=== PATIENT | female | born 2000 | race Hispanic/Latino ===

== ENCOUNTER 2023-08-03 19:44 | Emergency (ER) | payer OTHER ==
[2023-08-03 20:40] LABS: Bilirubin Neg (Negative); Blood, Urine 10 (Negative); Clarity Clear (Clear); Glucose, Urine (Dipstick) Normal (Negative); Ketone, Urine 150 mg/dL (Negative); Leukocyte 500 (Negative); Nitrite Negative (Negative); Protein, Urine (Dipstick) 30 mg/dl (Neg-Trace); Specific Gravity, Urine 1.025 (1.005-1.030); Urobilinogen Normal mg/dL (Less than 2)
[2023-08-03 20:49] LABS: Bacteria/HPF 4+ HPF (None Seen); CAUTI Indications for Culture Pregnancy; Mucous/LPF 3+ LPF (<2+); RBC/HPF 0-3 HPF (0-3); WBC/HPF 21-50 HPF (0-3)
[2023-08-03 20:50] LABS: Urine Culture Reflex Yes Yes
[2023-08-03 21:03] LABS: #Eosinphils 0.1 10x3/uL (0.0-0.5); #Monocytes 0.6 10x3/uL (0.0-1.1); #Neutrophils 7.8 10x3/uL (1.5-8.4); %Basophils 0.4 % (0.0-2.0); %Eosinophils 0.8 % (0.0-6.0); %Lymphocytes 20.6 % (18.0-47.0); %Monocytes 5.7 % (0.0-10.0); %Neutrophils 71.9 % (40.0-75.0); Hematocrit 34.4 % (34.9-44.5); Mean Corpuscular Hemoglobin 23.5 pg (27.0-33.0); Mean Corpuscular Volume 73.5 fl (81.6-98.3); Mean Platelet Volume 10.3 fl (7.4-10.4); Platelet Count 335 10x3/uL (150-450); RBC Distribution Width 14.6 % (11.5-14.5); Red Blood Cell (RBC) Count 4.68 10x6/uL (3.90-5.03); White Blood Cell (WBC) Count 10.8 10x3/uL (3.5-10.5)
[2023-08-03 21:08] LABS: ALT (SGPT) 21 U/L (8-55); AST (SGOT) 16 U/L (5-34); Albumin 3.6 g/dL (3.5-5.0); Alkaline Phosphatase 60 U/L (40-110); Anion Gap 14 mmol/L (10-20); BUN (Urea Nitrogen) 6 mg/dL (7.0-18.7); Bilirubin, Total 0.3 mg/dL (0.2-1.2); Calc. Creatinine Clearance 0 mL/min (70-130); Calcium 8.4 mg/dL (7.8-10.44); Carbon Dioxide 17 mmol/L (22-29); Chloride 107 mmol/L (98-107); Estimated GFR 132; Globulin 3.4 g/dL (2.4-3.5); Glucose 76 mg/dL (70-105); Potassium 3.7 mmol/L (3.5-5.1); Sodium 134 mmol/L (136-145)
[2023-08-03 21:34] LABS: Anisocytosis MODERATE=16-30 cells (100X) (0-5/hpf); Hypochromia SLIGHT = 6-15 cells (100X) (0-5/hpf); Microcytosis MODERATE=15-30 cells (100X) (0-5/hpf); Ovalocytes SLIGHT = 2-5 cells (100X) (0-1/hpf); Poikilocytosis SLIGHT = 6-15 cells (100X) (0-5/hpf); Schistocytes SLIGHT = 2-5 cells (100X) (0-1/hpf)
[2023-08-03 21:35] LABS: Giant Platelets SLIGHT HPF (0-5); Platelet Adequacy Comment Appears Adequate; Tear Drops SLIGHT = 2-5 cells (100X) (0-1/hpf)
[2023-08-03] MEDS ORDERED: Cephalexin 250 MG CAP ONE (21:35)
== END 2023-08-03 21:40 | disposition home or self-care (01) ==
LOC: CSHERS 19:44
DX: O20.0 Threatened abortion (principal); O23.42 Unspecified infection of urinary tract in pregnancy, second trimester; N39.0 Urinary tract infection, site not specified; Z3A.18 18 weeks gestation of pregnancy
CPT/HCPCS: 76815; 80053; 81001; 85025; 86900; 86901; 87086

== ENCOUNTER 2023-12-13 16:07 | Inpatient (IN) | payer OTHER ==
[2023-12-13] MEDS ORDERED: Methylergonovine 0.2 MG/ML VIAL IM PRN (18:20)
[2023-12-13] MEDS ORDERED: HYDROcodone/Acetaminophen 5/325 mg Tablet PO PRN ×2 (18:20)
[2023-12-13] MEDS ORDERED: Misoprostol 200 MCG TAB PR PRN (18:20)
[2023-12-13] MEDS ORDERED: Ondansetron PF 4 MG/2 ML Vial IVP PRN (18:20)
[2023-12-13] MEDS ORDERED: Promethazine HCl 25 MG/ML VIAL IM PRN (18:20)
[2023-12-13] MEDS ORDERED: Ibuprofen 800 MG TAB PO PRN (18:20)
[2023-12-13] MEDS ORDERED: hydrALAZINE 20 MG/ML VIAL SLOW IVP PRN (18:20)
[2023-12-13] MEDS ORDERED: Lidocaine 1% (PF) 30 ML VIAL SC PRN (18:20)
[2023-12-13] MEDS ORDERED: Oxytocin 30 units/NS 500 ML 500 ML IV SCH (18:30)
[2023-12-14 00:05] VITALS: BMI 40.0
[2023-12-14 01:26] LABS: Hematocrit 34.4 % (34.9-44.5); Hemoglobin 11.1 g/dL (12.0-15.5); Mean Corpuscular HGB CONC 32.3 g/dL (32.0-36.0); Mean Corpuscular Hemoglobin 23.8 pg (27.0-33.0); Mean Corpuscular Volume 73.8 fL (81.6-98.3); Mean Platelet Volume 11.1 fL (7.4-10.4); Platelet Count 263 10x3/uL (150-450); RBC Distribution Width 18.5 % (11.5-14.5); Red Blood Cell (RBC) Count 4.66 10x6/uL (3.90-5.03); White Blood Cell (WBC) Count 10.9 10x3/uL (3.5-10.5)
[2023-12-14] MEDS: Misoprostol 100 MCG TAB VAG SCH (01:42)
[2023-12-14 01:51] LABS: Syphilis Antibody Nonreactive (Nonreactive); Syphilis Antibody Index 0.06 S/CO (<1.00 Non-Reactive)
[2023-12-14 01:53] LABS: HBsAg Index 0.21 S/CO (0-0.99); Hep B Surf Ag - L&D Non-Reactive S/CO (NonReactive)
[2023-12-14] MEDS: Oxytocin 30 units/NS 500 ML 500 ML IV SCH (14:19)
[2023-12-14] MEDS ORDERED: Bupivacaine 0.25% HCL 30 ML VIAL ONE (18:00)
[2023-12-14] MEDS ORDERED: Lidocaine 2% MPF 10 ML AMP (For Epidural Use) ONE (18:00)
[2023-12-14] MEDS ORDERED: Bupivacaine/Epinephrine 0.25% 30 ML VIAL ONE (18:00)
[2023-12-14] MEDS: Lactated Ringer's 1,000 ML IV SCH (20:20)
[2023-12-15] MEDS: fentaNYL 50 mcg/mL 1 mL Vial SLOW IVP PRN (04:31)
[2023-12-15] MEDS ORDERED: Naloxone HCl 0.4 mg/ml Vial IVP PRN ×2 (09:30)
[2023-12-15] MEDS ORDERED: Acetaminophen 325 MG TAB PO PRN (09:30)
[2023-12-15] MEDS ORDERED: Promethazine HCl 25 MG/ML VIAL IM PRN (09:30)
[2023-12-15] MEDS ORDERED: Lactated Ringer's 500 ML IV PRN (09:30)
[2023-12-15] MEDS ORDERED: Communication Order-Pharmacy FS SCH (09:30)
[2023-12-15] MEDS ORDERED: Moisturizing Cream (Eucerin) 113 GM JAR TOP PRN (09:30)
[2023-12-15] MEDS ORDERED: ePHEDrine Sulfate 50 MG/10 ML VIAL SLOW IVP PRN (09:30)
[2023-12-15] MEDS ORDERED: diphenhydrAMINE 50 MG/ML VIAL IVP PRN (09:30)
[2023-12-15] MEDS ORDERED: fentaNYL 2 mcg/Ropivacaine 0.2% Epidural 100 ML CADD EPIDURAL SCH (09:30)
[2023-12-15] MEDS ORDERED: Ondansetron PF 4 MG/2 ML Vial IVP PRN ×3 (09:30→21:58)
[2023-12-15] MEDS: fentaNYL/Ropivacaine Epidural 100 ML ONE (09:50)
[2023-12-15] MEDS ORDERED: Famotidine/PF 20 mg/2ml Vial SLOW IVP PRN (16:42)
[2023-12-15] MEDS ORDERED: Bicitra 30 ML UDCUP PO PRN (16:42)
[2023-12-15] MEDS ORDERED: CEFAZOLIN 2 GM in Sodium Chloride 0.9% 100 ML IVPB SCH (16:45)
[2023-12-15] MEDS ORDERED: Azithromycin 500 MG in Sodium Chloride 0.9% 250 ML 250 ML IVPB SCH (16:45)
[2023-12-15] MEDS ORDERED: fentaNYL 50 mcg/mL 1 mL Vial SLOW IVP PRN (18:52)
[2023-12-15] MEDS ORDERED: Meperidine HCl/PF 25 MG (1 mL) VIAL SLOW IVP PRN (18:52)
[2023-12-15] MEDS ORDERED: hydrALAZINE 20 MG/ML VIAL SLOW IVP PRN (21:58)
[2023-12-15] MEDS ORDERED: Lanolin Ointment 7 GM TUBE TOP PRN (21:58)
[2023-12-15] MEDS ORDERED: HYDROcodone/Acetaminophen 5/325 mg Tablet PO PRN (21:58)
[2023-12-15] MEDS ORDERED: Methylergonovine 0.2 MG/ML VIAL IM PRN (21:58)
[2023-12-15] MEDS ORDERED: Misoprostol 200 MCG TAB PR PRN (21:58)
[2023-12-15] MEDS ORDERED: Boostrix 0.5 ML (Tdap) VIAL (>/=7 yrs of age) IM ONE (21:58)
[2023-12-15] MEDS ORDERED: Oxytocin 30 units/NS 500 ML 500 ML IV SCH (22:30)
[2023-12-15] MEDS: Ferrous Sulfate 325 MG TAB PO SCH (23:40)
[2023-12-15] MEDS: Docusate 100 MG CAP PO SCH (23:40)
[2023-12-15] MEDS: Ketorolac Tromethamine 30 MG (1 mL) VIAL IVP SCH (23:40)
[2023-12-16 05:15] LABS: Hematocrit 31.7 % (34.9-44.5); Hemoglobin 10.5 g/dL (12.0-15.5); Mean Corpuscular HGB CONC 33.1 g/dL (32.0-36.0); Mean Corpuscular Hemoglobin 24.4 pg (27.0-33.0); Mean Corpuscular Volume 73.7 fL (81.6-98.3); Mean Platelet Volume 11.5 fL (7.4-10.4); Platelet Count 249 10x3/uL (150-450); RBC Distribution Width 17.9 % (11.5-14.5); White Blood Cell (WBC) Count 19.1 10x3/uL (3.5-10.5)
[2023-12-16] MEDS: CEFAZOLIN 2 GM VIAL ONE (07:02)
[2023-12-16] MEDS: Carboprost 250 MCG/ML AMP ONE (07:03)
[2023-12-16] MEDS: Bicitra 30 ML UDCUP ONE (07:03)
[2023-12-16] MEDS: Azithromycin 500 MG VIAL ONE (07:03)
[2023-12-16] MEDS: Erythromycin Base 0.5% Oint 1 GM TUBE ONE (07:03)
[2023-12-16] MEDS: Tranexamic Acid 1,000 MG/10 ML VIAL ONE (07:03)
[2023-12-16] MEDS: Methylergonovine 0.2 MG/ML VIAL ONE (07:03)
[2023-12-16] MEDS: PHENYLEPHRINE-NS 100 MCG/ML 10 ML SYRINGE ONE (07:04)
[2023-12-16] MEDS: Phytonadione Neonatal 1 MG/0.5 ML AMP ONE (07:04)
[2023-12-16] MEDS: SUCCINYLCHOLINE/SOD CL,ISO/PF 200 MG/10 ML SYRINGE FS ONE (07:04)
[2023-12-16] MEDS: PROPOFOL 20 ML ONE (07:04)
[2023-12-16] MEDS: Hepatitis B Vaccine 10 MCG/0.5 ML SYR ONE (07:04)
[2023-12-16] MEDS: Ondansetron PF 4 MG/2 ML Vial ONE ×2 (07:04→07:05)
[2023-12-16] MEDS: Metoclopramide HCl 10 MG (2 mL) VIAL ONE (07:05)
[2023-12-16] MEDS: Fentanyl 250 MCG/5 ML VIAL ONE ×2 (07:05)
[2023-12-16] MEDS: Dexmedetomidine 200 MCG/2 ML VIAL ONE (07:05)
[2023-12-16] MEDS: Dexamethasone 10 MG/ML VIAL ONE (07:05)
[2023-12-16] MEDS: Ketorolac Tromethamine 30 MG (1 mL) VIAL ONE (07:06)
[2023-12-16] MEDS: Oxytocin 10 UNITS/ML VIAL ONE ×2 (07:06)
[2023-12-16] MEDS: Promethazine HCl 25 MG/ML VIAL ONE (07:06)
[2023-12-16] MEDS: Lidocaine 2% MPF 10 ML AMP (For Epidural Use) ONE (07:06)
[2023-12-16 08:19] LABS: D-Dimer Test 1.39 mcg/mL (0.19-0.50); PTT 28.8 sec (22.0-33.0); Prothrombin Time 10.6 sec (9.5-12.1)
[2023-12-16] MEDS: HYDROcodone/Acetaminophen 5/325 mg Tablet PO PRN (08:29)
[2023-12-16] MEDS: Docusate 100 MG CAP PO SCH (08:29)
[2023-12-16] MEDS: Prenatal Vitamin 1 TAB PO SCH (08:29)
[2023-12-16] MEDS: Ferrous Sulfate 325 MG TAB PO SCH (08:30)
[2023-12-16] MEDS: Enoxaparin 40 MG (0.4 mL) SYRINGE SC SCH ×2 (10:25→21:47)
[2023-12-16] MEDS: Simethicone Chewable 80 MG TAB PO PRN (16:24)
[2023-12-16] MEDS: Ibuprofen 800 MG TAB PO SCH (21:47)
[2023-12-17 04:38] LABS: Hematocrit 30.5 % (34.9-44.5); Hemoglobin 9.6 g/dL (12.0-15.5)
[2023-12-17 08:17] VITALS: BP 106/64; TEMP 97.8
== END 2023-12-17 11:20 | disposition home or self-care (01) | DRG 787 ==
LOC: CSHLD 21:06 → CSHPP 12-15 21:30
PROVIDERS: ADMIT Obstetrics & Gynecology; ATTEND Obstetrics & Gynecology
PROC: 10D00Z1 Extraction of Products of Conception, Low, Open Approach (ICD-10-PCS; principal; 2023-12-15)
DX: O41.03X0 Oligohydramnios, third trimester, not applicable or unspecified (principal); O72.1 Other immediate postpartum hemorrhage; Z3A.37 37 weeks gestation of pregnancy; O62.0 Primary inadequate contractions; O99.214 Obesity complicating childbirth; Z37.0 Single live birth
CPT/HCPCS: 36415; 51702; 85014; 85018; 85027; 85049; 85300; 85362; 85384; 85610; 85730; 86780; 86850; 86900; 86901; 87340; J0665; J1100; J1650; J1885; J2405; J2550; J2590; J2704; J2765; J3010; J7120